=== PATIENT | female | born 1995 | race Two or more races ===

== ENCOUNTER 2016-10-05 14:27 | Emergency (ER) | payer MEDICAID ==
[~2016-10-05] VITALS: Ht 154.9 cm; Wt 72.6 kg
[~2016-10-05 14:27] MED LIST: PREN-96 PO
[2016-10-05 15:30] LABS: Urine Bilirubin Negative (Negative); Urine Color Yellow (Yellow); Urine Glucose Normal (Normal); Urine Ketone Negative (Negative); Urine Nitrite Negative (Negative); Urine RBC 10 /hpf (0 - 4); Urine Squamous Epithelial Cell FEW /hpf (<5); Urine Urobilinogen Normal (Negative)
[2016-10-05 15:34] LABS: Urine Blood 2+ /uL (Negative)
[2016-10-05 17:19] LABS: Basophils # (auto) 0.1 uL; Basophils % (auto) 0.5 % (0.0-2.0); Eosinophils # (auto) 0 uL; Eosinophils % (auto) 0.3 % (0.0-7.0); Hematocrit 40.6 % (36.0-46.0); Hemoglobin 13.6 g/dL (12.2-16.2); Lymphocytes # (auto) 2.6 uL; Lymphocytes % (auto) 20.9 % (10.0-50.0); Mean Corpuscular Hemoglobin 30.9 pg (28.0-32.0); Mean Corpuscular Hgb Conc. 33.4 g/dL (32.0-36.0); Mean Corpuscular Volume 92.4 fL (80.0-100.0); Mean Platelet Volume 8.2 fL (7.4-10.4); Monocytes # (auto) 0.5 uL; Monocytes % (auto) 3.9 % (0.0-12.0); Neutrophils # (auto) 9.1 uL; Neutrophils % (auto) 74.4 % (37.0-80.0); Platelet Count (auto) 311 10^3/uL (140-450); Red Cell Distribution Width 12.5 % (11.6-16.0); White Blood Cell 12.2 10^3/uL (4.4-10.8)
[2016-10-05 17:52] LABS: Albumin 4.3 g/dL (3.4-5.0); BUN/Creatinine Ratio 10.8; Bilirubin, Total 0.4 mg/dL (0.2-1.0); Calcium 9.4 mg/dL (8.5-10.1); Total Protein 8.4 g/dL (6.4-8.2)
[2016-10-06 02:30] VITALS: BP 127/76
== END 2016-10-06 02:03 | disposition home or self-care (01) ==
LOC: ER 14:27
DX: S16.1XXA Strain of muscle, fascia and tendon at neck level, initial encounter (principal); S00.81XA Abrasion of other part of head, initial encounter; F17.210 Nicotine dependence, cigarettes, uncomplicated; F12.10 Cannabis abuse, uncomplicated; Y08.89XA Assault by other specified means, initial encounter; Y93.89 Activity, other specified; Y99.8 Other external cause status; Y92.89 Other specified places as the place of occurrence of the external cause
CPT/HCPCS: 36415; 72040; 76856; 80053; 81001; 81025; 85025

== ENCOUNTER 2016-11-16 17:42 | Emergency (ER) | payer MEDICAID ==
[~2016-11-16] VITALS: Ht 157.5 cm; Wt 72.6 kg
[2016-11-16 18:49] LABS: Basophils # (auto) 0 uL; Basophils % (auto) 0.2 % (0.0-2.0); Eosinophils # (auto) 0.1 uL; Eosinophils % (auto) 1.3 % (0.0-7.0); Hemoglobin 13.6 g/dL (12.2-16.2); Lymphocytes # (auto) 3.2 uL; Lymphocytes % (auto) 29.9 % (10.0-50.0); Mean Corpuscular Hgb Conc. 33.2 g/dL (32.0-36.0); Mean Corpuscular Volume 93.2 fL (80.0-100.0); Mean Platelet Volume 8.1 fL (7.4-10.4); Monocytes # (auto) 0.6 uL; Monocytes % (auto) 5.2 % (0.0-12.0); Neutrophils # (auto) 6.9 uL; Neutrophils % (auto) 63.4 % (37.0-80.0); Platelet Count (auto) 317 10^3/uL (140-450); Red Cell Distribution Width 12.8 % (11.6-16.0); White Blood Cell 10.8 10^3/uL (4.4-10.8)
[2016-11-16 19:43] LABS: Urine Bilirubin Negative (Negative); Urine Blood Negative /uL (Negative); Urine Color Yellow (Yellow); Urine Glucose Normal (Normal); Urine Ketone Negative (Negative); Urine Nitrite Negative (Negative); Urine RBC <1 /hpf (0 - 4); Urine Squamous Epithelial Cell FEW /hpf (<5); Urine Urobilinogen Normal (Negative)
[2016-11-17] MEDS ORDERED: HYDROcodone-ACET 7.5/325MG TAB PO ONE (02:15)
[2016-11-17 02:42] LABS: Albumin 4.1 g/dL (3.4-5.0); BUN/Creatinine Ratio 15.7; Calcium 9.1 mg/dL (8.5-10.1); Potassium 4.4 mmol/L (3.5-5.1)
[2016-11-17 02:45] LABS: Bilirubin, Total 0.3 mg/dL (0.2-1.0); Total Protein 7.9 g/dL (6.4-8.2)
[2016-11-17 05:15] VITALS: BP 120/74
== END 2016-11-17 07:02 | disposition home or self-care (01) ==
LOC: ER 17:44
DX: N94.6 Dysmenorrhea, unspecified (principal); F17.210 Nicotine dependence, cigarettes, uncomplicated; F12.10 Cannabis abuse, uncomplicated
CPT/HCPCS: 36415; 76856; 80053; 81001; 84702; 85025

== ENCOUNTER 2017-12-12 19:56 | Emergency (ER) | payer MEDICAID ==
[~2017-12-12] VITALS: Ht 152.4 cm; Wt 77.1 kg
[2017-12-12 20:11] VITALS: BP 144/86
== END 2017-12-12 23:19 | disposition left against medical advice (07) ==
LOC: ER 19:56
DX: N93.9 Abnormal uterine and vaginal bleeding, unspecified (principal); R42 Dizziness and giddiness; Z53.21 Procedure and treatment not carried out due to patient leaving prior to being seen by health care provider

== ENCOUNTER 2018-07-31 21:57 | Emergency (ER) | payer MEDICAID ==
[~2018-07-31] VITALS: Ht 152.4 cm; Wt 81.6 kg
[2018-07-31 23:10] LABS: Urine Bacteria MOD /hpf (None Seen); Urine Blood Negative /uL (Negative); Urine Mucus FEW (None Seen); Urine Specific Gravity 1.012 (1.001-1.035); Urine WBC 6 /hpf (0 - 5)
[2018-08-01] MEDS ORDERED: ONDANSETRON HCL 4 MG/2 ML VIAL IV ONE (03:45)
[2018-08-01] MEDS ORDERED: SODIUM CHLORIDE 0.9% 1,000 ML IV ONE ×2 (03:45→04:00)
[2018-08-01] MEDS ORDERED: HYDROmorphone HCL 2 MG/ML VL IV ONE (03:45)
[2018-08-01 05:33] VITALS: BP 117/68
== END 2018-08-01 07:00 | disposition home or self-care (01) ==
LOC: ER 21:57
DX: O20.0 Threatened abortion (principal); O23.41 Unspecified infection of urinary tract in pregnancy, first trimester; Z3A.01 Less than 8 weeks gestation of pregnancy
CPT/HCPCS: 36415; 76801; 76817; 81001; 84702; 96374; 96375; 99284; J1170; J2405; J7030

== ENCOUNTER 2018-08-09 18:35 | Emergency (ER) | payer MEDICAID ==
[~2018-08-09] VITALS: Ht 152.4 cm; Wt 81.6 kg
[2018-08-09 18:47] VITALS: BP 139/63
[2018-08-09 19:31] LABS: Basophils # (auto) 0 uL; Basophils % (auto) 0.4 % (0.0-2.0); Eosinophils # (auto) 0.6 uL; Eosinophils % (auto) 4.7 % (0.0-7.0); Hematocrit 38.9 % (36.0-46.0); Lymphocytes # (auto) 2.8 uL; Lymphocytes % (auto) 23.4 % (10.0-50.0); Mean Corpuscular Hemoglobin 32.4 pg (28.0-32.0); Mean Corpuscular Hgb Conc. 33.5 g/dL (32.0-36.0); Mean Corpuscular Volume 96.6 fL (80.0-100.0); Monocytes # (auto) 0.7 uL; Monocytes % (auto) 5.5 % (0.0-12.0); Neutrophils # (auto) 7.8 uL; Nucleated Red Blood Cells % 0.1 %; Platelet Count (auto) 245 10^3/uL (140-450); Red Blood Cells 4.02 10^6/uL (4.0-5.20); Red Cell Distribution Width 12.7 % (11.8-14.3); White Blood Cell 11.8 10^3/uL (4.4-10.8)
[2018-08-09 19:48] LABS: Urine Bacteria FEW /hpf (None Seen); Urine Blood 1+ /uL (Negative); Urine Mucus FEW (None Seen); Urine Specific Gravity 1.014 (1.001-1.035); Urine WBC 3 /hpf (0 - 5)
== END 2018-08-10 02:00 | disposition left against medical advice (07) ==
LOC: ER 18:35
DX: O46.91 Antepartum hemorrhage, unspecified, first trimester (principal); Z3A.01 Less than 8 weeks gestation of pregnancy; Z53.21 Procedure and treatment not carried out due to patient leaving prior to being seen by health care provider
CPT/HCPCS: 36415; 76801; 76817; 81001; 84702; 85025

== ENCOUNTER 2019-02-27 20:40 | Observation (INO) | payer MEDICAID ==
[~2019-02-27] VITALS: Ht 152.4 cm; Wt 87.1 kg
[2019-02-27 22:13] LABS: Basophils # (auto) 0 uL; Basophils % (auto) 0.4 % (0.0-2.0); Eosinophils # (auto) 0.1 uL; Hematocrit 30.7 % (36.0-46.0); Hemoglobin 10.6 g/dL (12.2-16.2); Lymphocytes # (auto) 2.4 uL; Mean Corpuscular Hemoglobin 32.2 pg (28.0-32.0); Mean Corpuscular Hgb Conc. 34.6 g/dL (32.0-36.0); Monocytes # (auto) 0.4 uL; Monocytes % (auto) 5.3 % (0.0-12.0); Neutrophils # (auto) 5.2 uL; Neutrophils % (auto) 64.3 % (37.0-80.0); Platelet Count (auto) 165 10^3/uL (140-450); Red Cell Distribution Width 12.8 % (11.8-14.3); White Blood Cell 8.1 10^3/uL (4.4-10.8)
[2019-02-27] MEDS ORDERED: ACETAMINOPHEN 325 MG TAB PO ONE (22:15)
[2019-02-27 22:26] LABS: Albumin 2.4 g/dL (3.4-5.0); BUN/Creatinine Ratio 18.3; Potassium 3.6 mmol/L (3.5-5.1); Uric Acid 4.4 mg/dL (2.6-6.0)
[2019-02-27 22:27] LABS: INR < 0.93 (0.9-1.15)
[2019-02-27 22:28] LABS: Bilirubin, Total 0.2 mg/dL (0.2-1.0); Total Protein 5.9 g/dL (6.4-8.2)
[2019-02-27 22:34] LABS: Alcohol, Urine < 3.0 mg/dL (0-5); Amphetamine Screen, Urine NEGATIVE (NEGATIVE); Benzodiazephine Screen, Urine NEGATIVE (NEGATIVE); Cannabinoid Screen, Urine NEGATIVE (NEGATIVE); Cocaine Screen, Urine NEGATIVE (NEGATIVE); Opiate Scree,Urine NEGATIVE (NEGATIVE); Phencyclidine Screen, Urine NEGATIVE (NEGATIVE)
[2019-02-27 22:38] LABS: Urine Bacteria NONE SEEN /hpf (None Seen); Urine Blood Negative /uL (Negative); Urine Specific Gravity 1.032 (1.001-1.035); Urine WBC 11 /hpf (0 - 5)
[2019-02-27 22:50] LABS: Barbiturate Scree,Urine NEGATIVE (NEGATIVE)
[2019-02-27] MEDS ORDERED: BETAMETHASONE ACET (6MG/ML) 5ML VIAL IM SCH (23:15)
== END 2019-02-27 23:30 | disposition home or self-care (01) | DRG 566 ==
LOC: LDRP 20:40
PROVIDERS: ADMIT Obstetrics & Gynecology; ATTEND Obstetrics & Gynecology
DX: O26.893 Other specified pregnancy related conditions, third trimester (principal); R03.0 Elevated blood-pressure reading, without diagnosis of hypertension; R10.2 Pelvic and perineal pain; R51 Headache; Z3A.34 34 weeks gestation of pregnancy
CPT/HCPCS: 36415; 59025; 80053; 80307; 81001; 81002; 84550; 85025; 85610; 85730; 96372; G0378; J0702

== ENCOUNTER 2019-02-28 20:01 | Observation (INO) | payer MEDICAID ==
[2019-02-28] MEDS ORDERED: BETAMETHASONE ACET (6MG/ML) 5ML VIAL IM ONE ×2 (20:15→20:45)
== END 2019-02-28 21:11 | disposition home or self-care (01) | DRG 566 ==
LOC: LDRP 20:01
PROVIDERS: ADMIT Specialist; ATTEND Specialist
DX: O26.893 Other specified pregnancy related conditions, third trimester (principal); R03.0 Elevated blood-pressure reading, without diagnosis of hypertension; R10.2 Pelvic and perineal pain; R51 Headache; Z3A.34 34 weeks gestation of pregnancy
CPT/HCPCS: 59025; 81002; 96372; G0378

== ENCOUNTER 2019-03-01 08:00 | Observation (INO) | payer MEDICAID ==
[2019-03-01] MEDS: LACTATED RINGER'S 1,000 ML IV ONE ×2 (09:30→10:15)
[2019-03-01 09:45] LABS: Urine Bacteria NONE SEEN /hpf (None Seen); Urine Blood Negative /uL (Negative); Urine Mucus FEW (None Seen); Urine Specific Gravity 1.027 (1.001-1.035); Urine WBC 2 /hpf (0 - 5)
[2019-03-01] MEDS ORDERED: TERBUTALINE SULFATE 1 MG/ML 1ML VIAL SC SCH (09:45)
[2019-03-01 09:48] LABS: Basophils # (auto) 0 uL; Basophils % (auto) 0.2 % (0.0-2.0); Eosinophils # (auto) 0 uL; Hematocrit 31.2 % (36.0-46.0); Hemoglobin 10.7 g/dL (12.2-16.2); Lymphocytes # (auto) 1.5 uL; Lymphocytes % (auto) 14.3 % (10.0-50.0); Mean Corpuscular Hgb Conc. 34.3 g/dL (32.0-36.0); Mean Corpuscular Volume 93.2 fL (80.0-100.0); Monocytes # (auto) 0.3 uL; Monocytes % (auto) 2.9 % (0.0-12.0); Neutrophils # (auto) 8.9 uL; Neutrophils % (auto) 82.6 % (37.0-80.0); Nucleated Red Blood Cells % 0.1 %; Platelet Count (auto) 171 10^3/uL (140-450); Red Blood Cells 3.35 10^6/uL (4.0-5.20); Red Cell Distribution Width 12.8 % (11.8-14.3); White Blood Cell 10.8 10^3/uL (4.4-10.8)
[2019-03-01 09:55] LABS: INR < 0.93 (0.9-1.15); Partial Thromboplastin Time 25.7 sec (23.64-32.05)
[2019-03-01 09:58] LABS: Potassium 4.1 mmol/L (3.5-5.1)
[2019-03-01 09:58] LABS: Protein, Urine 265.2 mg/dL (0.0-11.9)
[2019-03-01 10:04] LABS: Albumin 2.5 g/dL (3.4-5.0); Bilirubin, Total 0.2 mg/dL (0.2-1.0); Calcium 8.5 mg/dL (8.5-10.1); Total Protein 6.3 g/dL (6.4-8.2); Uric Acid 3.9 mg/dL (2.6-6.0)
== END 2019-03-01 12:00 | disposition home or self-care (01) | DRG 566 ==
LOC: LDRP 08:00
PROVIDERS: ADMIT Specialist; ATTEND Specialist
DX: O26.893 Other specified pregnancy related conditions, third trimester (principal); F41.9 Anxiety disorder, unspecified; R51 Headache; R07.89 Other chest pain; O99.343 Other mental disorders complicating pregnancy, third trimester; Z3A.34 34 weeks gestation of pregnancy
CPT/HCPCS: 36415; 59025; 80053; 81001; 81002; 84156; 84550; 85025; 85610; 85730; 96372; G0378; J3105

== ENCOUNTER 2019-03-04 09:40 | Observation (INO) | payer MEDICAID ==
[~2019-03-04] VITALS: Ht 152.4 cm; Wt 91.2 kg
[2019-03-04] MEDS ORDERED: TERBUTALINE SULFATE 1 MG/ML 1ML VIAL SC SCH (10:45)
[2019-03-04 11:00] LABS: Basophils # (auto) 0 uL; Basophils % (auto) 0.3 % (0.0-2.0); Eosinophils # (auto) 0 uL; Eosinophils % (auto) 0.4 % (0.0-7.0); Hematocrit 29.6 % (36.0-46.0); Hemoglobin 10.2 g/dL (12.2-16.2); Lymphocytes # (auto) 2.6 uL; Lymphocytes % (auto) 29.1 % (10.0-50.0); Mean Corpuscular Hgb Conc. 34.3 g/dL (32.0-36.0); Mean Corpuscular Volume 93.3 fL (80.0-100.0); Monocytes # (auto) 0.5 uL; Monocytes % (auto) 5.5 % (0.0-12.0); Neutrophils # (auto) 5.9 uL; Neutrophils % (auto) 64.7 % (37.0-80.0); Nucleated Red Blood Cells % 0.1 %; Platelet Count (auto) 171 10^3/uL (140-450); Red Blood Cells 3.18 10^6/uL (4.0-5.20); Red Cell Distribution Width 12.6 % (11.8-14.3); White Blood Cell 9.1 10^3/uL (4.4-10.8)
[2019-03-04 11:06] LABS: Urine Bacteria FEW /hpf (None Seen); Urine Blood 1+ /uL (Negative); Urine Mucus FEW (None Seen); Urine Specific Gravity 1.033 (1.001-1.035); Urine WBC 5 /hpf (0 - 5)
[2019-03-04 11:15] LABS: INR < 0.93 (0.9-1.15); Partial Thromboplastin Time 26.5 sec (23.64-32.05)
[2019-03-04 11:19] LABS: Albumin 2.1 g/dL (3.4-5.0); Calcium 7.5 mg/dL (8.5-10.1)
[2019-03-04 11:24] LABS: BUN/Creatinine Ratio 25.5; Bilirubin, Total 0.3 mg/dL (0.2-1.0); Total Protein 5.3 g/dL (6.4-8.2); Uric Acid 4.9 mg/dL (2.6-6.0)
[2019-03-04] MEDS ORDERED: DEXTROSE 10% 1,000 ML IV ONE ×2 (11:45→12:00)
[2019-03-04] MEDS ORDERED: LACTATED RINGER'S 1,000 ML IV ONE (11:45)
[2019-03-04] MEDS ORDERED: CEFTRIAXONE SODIUM 2 GM in D5W 5% 50 ML IV ONE (11:45)
[2019-03-04] MEDS ORDERED: SODIUM CHLORIDE 0.9% 1,000 ML IV SCH ×2 (11:45→14:50)
[2019-03-04] MEDS: LABETALOL HCL 200 MG TAB PO SCH (11:56)
[2019-03-04] MEDS ORDERED: DEXTROSE 10% 250 ML IV ONE (12:24)
[2019-03-04] MEDS: ACETAMINOPHEN 325 MG TAB PO PRN ×2 (13:44→23:24)
[2019-03-04] MEDS ORDERED: MAGNESIUM SULFATE 100 ML IV STA (19:16)
[2019-03-04] MEDS ORDERED: LACTATED RINGER'S 1,000 ML IV SCH (19:16)
[2019-03-04] MEDS: MAGNESIUM SULFATE 40MG/ML 1,000 ML IV SCH (20:54)
[2019-03-04] MEDS ORDERED: hydrALAZINE HCL 20 MG/ML VL IV ONE (21:00)
[2019-03-04] MEDS ORDERED: cefTRIAXone 1GM/50ML D5W 50 ML IV SCH (21:00)
[2019-03-04] MEDS ORDERED: hydrALAZINE HCL 20 MG/ML VL ONE (21:05)
[2019-03-05] VITALS (16 sets, daily range): BP systolic 123–137; BP diastolic 71–101
[2019-03-05] MEDS: LABETALOL HCL 200 MG TAB PO SCH (00:41)
[2019-03-05] MEDS: ACETAMINOPHEN 325 MG TAB PO PRN (04:27)
[2019-03-05] MEDS ORDERED: hydrALAZINE HCL 20 MG/ML VL IV PRN (06:45)
[2019-03-05] MEDS ORDERED: TETRACAINE 1% INJ 2 ML VIAL IJ ONE (07:12)
[2019-03-05] MEDS ORDERED: EPINEPHrine HCL 1 MG/1 ML AMP ONE (07:24)
[2019-03-05] MEDS ORDERED: ePHEDrine SULFATE 50 MG/ML AMP ONE (07:24)
[2019-03-05] MEDS ORDERED: MIDAZOLAM HCL 1MG/1ML-2 ML VIAL ONE (07:24)
[2019-03-05] MEDS ORDERED: MORPHINE SULF(PF) 0.5MG/ML 10ML VIAL ONE (07:24)
[2019-03-05] MEDS ORDERED: ceFAZolin 1GM VL ONE ×3 (07:24→07:35)
[2019-03-05] MEDS ORDERED: OXYTOCIN 10 UNIT/ML 10ML VIAL ONE (07:24)
[2019-03-05] MEDS ORDERED: SODIUM CHLORIDE LOCK 20 ML ONE (07:24)
[2019-03-05] MEDS ORDERED: ONDANSETRON HCL 4 MG/2 ML VIAL ONE (07:24)
[2019-03-05] MEDS ORDERED: fentaNYL CITRATE 100 MCG/2 ML VL ONE (07:24)
[2019-03-05] MEDS ORDERED: LACTATED RINGER'S 1,000 ML IV SCH (08:55)
[2019-03-05] MEDS ORDERED: ACETAMINOPHEN IV 1000 MG/100ML (10MG/ML) IV ONE (09:00)
[2019-03-05] MEDS ORDERED: OXYTOCIN 10UNIT/ML 1ML VIAL ONE (09:00)
[2019-03-05] MEDS ORDERED: diphenhdrAMINE HCL 50 MG/1 ML VL IV PRN (09:00)
[2019-03-05] MEDS ORDERED: NALOXONE HCL 0.4 MG/ML VIAL IV PRN (09:00)
[2019-03-05] MEDS ORDERED: HYDROmorphone HCL 2 MG/ML VL IV PRN ×2 (09:00)
[2019-03-05] MEDS ORDERED: ONDANSETRON HCL 4 MG/2 ML VIAL IV PRN (09:00)
[2019-03-05] MEDS ORDERED: METOCLOPRAMIDE HCL 5MG/ml INJ 2ml VIAL IV ONE (09:00)
--- NOTE | 2019-03-05 09:56 | NUR ---
REPORT GIVEN TO DARIAN ON STABLE PT, TRANSFERRED CARE
--- NOTE | 2019-03-05 10:30 | NUR ---
DTR +2, RESP RATE.16
[2019-03-05] MEDS: MAGNESIUM SULFATE 40MG/ML 1,000 ML IV SCH (10:53)
--- NOTE | 2019-03-05 11:30 | NUR ---
DTR +2, RESP RATE.16 Signed: 03/05/19 at 1144 by Seferino Bar RN
--- NOTE | 2019-03-05 12:20 | NUR ---
DTR +2, RESP RATE.16
--- NOTE | 2019-03-05 13:30 | NUR ---
DTR +1, RESP RATE.16
[2019-03-05] MEDS ORDERED: PREN-96 PO (13:41)
--- NOTE | 2019-03-05 15:30 | NUR ---
DTR +1, RESP RATE.16
[2019-03-05] MEDS ORDERED: ceFAZolin 1GM/50ML 50 ML IV ONE ×2 (17:00→17:06)
[2019-03-05 18:07] LABS: Albumin 1.9 g/dL (3.4-5.0); Calcium 6.8 mg/dL (8.5-10.1)
[2019-03-05 18:10] LABS: BUN/Creatinine Ratio 13.2; Bilirubin, Total 0.3 mg/dL (0.2-1.0); Total Protein 5.1 g/dL (6.4-8.2)
--- NOTE | 2019-03-05 18:30 | NUR ---
Teaching: Reviewed information in [facility] booklet with patient. Discussed benefits of and risks associated with not . Discussed different positions, proper latch, feeding cues, and baby-led . Provided information of medication side effects related to . All questions and concerns addressed at this time. Patient verbalized understanding of information.
--- NOTE | 2019-03-05 19:00 | NUR ---
Magnesium Infusion Spoke with Dr. Perez regarding this patient. SBAR and update, including but not limited to 1710 Magnesium level 5.8, infusion still running at 2gm/50ml/hr. Orders received to stop Magnesium infusion for three hours, redraw magnesium level and restart at 2200, infuse for two hours and discontinue infusion at 0000 on 03/06/19. Patient updated on POC, magnesium infusion stopped at this time. Continue current plan of care.
[2019-03-05] MEDS: LACTATED RINGER'S 1,000 ML IV SCH (21:02)
[2019-03-06] VITALS (9 sets, daily range): BP systolic 124–145; BP diastolic 73–95
[2019-03-06] MEDS ORDERED: KETOROLAC TROMETH 15 mg/ml 1ML VL IV PRN (00:53)
[2019-03-06] MEDS ORDERED: ceFAZolin 1GM/50ML 50 ML IV ONE ×3 (01:00→09:13)
[2019-03-06] MEDS ORDERED: DERMOPLAST 60ML BOTTLE TOP PRN (04:15)
[2019-03-06] MEDS ORDERED: WITCH HAZEL-GLYCERIN PAD TOP PRN (04:15)
[2019-03-06] MEDS ORDERED: PHISODERM TOP SOLN 240ML BTL TOP PRN (04:15)
[2019-03-06 05:06] LABS: RPR Non Reactive (Non Reactive)
--- NOTE | 2019-03-06 05:20 | NUR ---
Ambulation: Patient OOB with standby assistance by RN. Patient ambulated to chair with steady gait. Calles catheter remains at this time. [facility] teaching provided with returned demonstration by patient. Clean gown provided and bed linen changed. Patient ambulated back to bed with steady gait and no distress noted.
[2019-03-06] MEDS ORDERED: IBUPROFEN 800 MG TAB PO PRN ×2 (06:15→09:00)
[2019-03-06 07:38] LABS: Basophils # (auto) 0 uL; Basophils % (auto) 0.4 % (0.0-2.0); Eosinophils # (auto) 0.1 uL; Hematocrit 28.1 % (36.0-46.0); Hemoglobin 9.8 g/dL (12.2-16.2); Lymphocytes % (auto) 19.7 % (10.0-50.0); Mean Corpuscular Hemoglobin 32.7 pg (28.0-32.0); Mean Corpuscular Volume 93.5 fL (80.0-100.0); Monocytes # (auto) 0.4 uL; Monocytes % (auto) 3.6 % (0.0-12.0); Neutrophils # (auto) 7.5 uL; Neutrophils % (auto) 75.3 % (37.0-80.0); Nucleated Red Blood Cells % 0.1 %; Platelet Count (auto) 184 10^3/uL (140-450); Red Blood Cells 3.01 10^6/uL (4.0-5.20)
--- NOTE | 2019-03-06 08:00 | NUR ---
Weaver catheter dc'd Order to discontinue weaver catheter. Weaver dc'd with clean technique following deflation of balloon. Patient tolerated well with no complaints of pain. Continue care. Dr. Perez At bedside at 0730 am and states only give medication labetalol 100 mg/bid if systolic pressure id equal or grater then 160 and diastolic of 95 equal to or greater then.
[2019-03-06] MEDS ORDERED: BISACODYL 10 MG RECT SUPP PR PRN (09:00)
[2019-03-06] MEDS ORDERED: HYDROcodone-ACET 5/325MG TAB PO PRN ×2 (09:00)
[2019-03-06] MEDS: HYDROcodone-ACET 5/325MG TAB PO PRN ×3 (09:10→22:30)
[2019-03-06] MEDS: DOCUSATE CALCIUM 240 MG CAP PO SCH (10:53)
[2019-03-06] MEDS: DOCUSATE SOD 100 MG CAP PO SCH ×2 (10:53→22:29)
--- NOTE | 2019-03-06 12:39 | NUR ---
REPORT GIVEN TO Joseph ROBIN RN
[2019-03-06] MEDS: LACTATED RINGER'S 1,000 ML IV SCH (13:56)
[2019-03-06] MEDS: SIMETHICONE 80 MG CHEWABLE TABLET PO SCH ×2 (17:53→22:29)
[2019-03-07 02:51] VITALS: BP 127/71
[2019-03-07] MEDS: HYDROcodone-ACET 5/325MG TAB PO PRN ×3 (02:59→20:56)
[2019-03-07] MEDS: SIMETHICONE 80 MG CHEWABLE TABLET PO SCH ×4 (06:03→22:25)
[2019-03-07 07:30] VITALS: BP 128/86
[2019-03-07] MEDS: DOCUSATE SOD 100 MG CAP PO SCH ×2 (10:35→22:25)
[2019-03-07] MEDS: DOCUSATE CALCIUM 240 MG CAP PO SCH (10:35)
[2019-03-07 11:12] VITALS: BP 137/83
[2019-03-07 14:44] VITALS: BP 141/88
[2019-03-07 19:30] VITALS: BP 134/89
--- NOTE | 2019-03-07 20:00 | NUR ---
IV removal IV DC'd with clean sterile technique in Right FA and Left AC, catheters fully intact. Pressure dressings applied to sites. Patient tolerated well. NOTE:
[2019-03-07 23:00] VITALS: BP 130/84
--- NOTE | 2019-03-08 02:59 | NUR ---
Discharge: Discharge instructions given as ordered. Pt encouraged to follow up with [facility] T[employer]ER as instructed. All questions and concerns addressed. Patient verbalized understanding. Medication reconciliation completed and copy given to patient.
[2019-03-08 03:06] VITALS: BP 120/73
[2019-03-08] MEDS: SIMETHICONE 80 MG CHEWABLE TABLET PO SCH (05:21)
[2019-03-08] MEDS: HYDROcodone-ACET 5/325MG TAB PO PRN (05:44)
[2019-03-08 07:10] VITALS: BP 135/97
--- NOTE | 2019-03-08 08:16 | NUR ---
Discharge: Patient taken to vehicle via ambulation refusing wheelchair with all personal belongings, accompanied by staff and family member. No distress noted at time of departure, no adverse changes in status since initial assessment.
== END 2019-03-08 08:16 | disposition home or self-care (01) | DRG 560 ==
LOC: LDRP 09:40
PROVIDERS: ADMIT Specialist; ATTEND Specialist
DX: O82 Encounter for cesarean delivery without indication (principal); Z37.0 Single live birth; O14.13 Severe pre-eclampsia, third trimester; O23.43 Unspecified infection of urinary tract in pregnancy, third trimester; O26.893 Other specified pregnancy related conditions, third trimester; R51 Headache; R80.9 Proteinuria, unspecified; Z3A.35 35 weeks gestation of pregnancy
CPT/HCPCS: 36415; 59025; 59514; 76805; 80053; 81001; 81002; 82948; 82962; 83735; 84112; 84550; 85025; 85384; 85610; 85730; 86592; 86703; 86762; 86850; 86900; 86901; 86920; 87040; 87086; 87340; 94760; 96365; 96366; 96367; 96372; 96375; G0378; J0171; J0360; J0690; J0696; J1885; J2250; J2270; J2405; J2590; J3010; J3105; J3475; J7030; J7060; J7120; 96361

== ENCOUNTER 2019-10-27 20:50 | Emergency (ER) | payer SELFPAY ==
[~2019-10-27] VITALS: Ht 152.4 cm; Wt 72.6 kg
[2019-10-27 21:36] LABS: Basophils # (auto) 0 10 ^3/uL (0-0.2); Basophils % (auto) 0.4 % (0.0-2.0); Eosinophils # (auto) 0.2 10 ^3/uL (0-0.8); Eosinophils % (auto) 2.2 % (0.0-7.0); Hematocrit 35.9 % (36.0-46.0); Hemoglobin 12.4 g/dL (12.2-16.2); Lymphocytes # (auto) 2.7 10 ^3/uL (0.4-5.4); Lymphocytes % (auto) 28.8 % (10.0-50.0); Mean Corpuscular Hemoglobin 32.4 pg (28.0-32.0); Mean Corpuscular Hgb Conc. 34.6 g/dL (32.0-36.0); Mean Corpuscular Volume 93.7 fL (80.0-100.0); Monocytes # (auto) 0.4 10 ^3/uL (0-1.3); Monocytes % (auto) 4.4 % (0.0-12.0); Neutrophils # (auto) 6.1 10 ^3/uL (1.6-8.6); Neutrophils % (auto) 64.2 % (37.0-80.0); Nucleated Red Blood Cells % 0.1 %; Platelet Count (auto) 240 10^3/uL (140-450); Red Blood Cells 3.83 10^6/uL (4.0-5.20); Red Cell Distribution Width 13.6 % (11.8-14.3); White Blood Cell 9.4 10^3/uL (4.4-10.8)
[2019-10-27 21:40] LABS: Urine Bacteria NONE SEEN /hpf (None Seen); Urine Blood Negative /uL (Negative); Urine Specific Gravity 1.005 (1.001-1.035); Urine WBC 2 /hpf (0 - 5)
[2019-10-27 21:57] LABS: Calcium 8.9 mg/dL (8.5-10.1); Potassium 3.6 mmol/L (3.5-5.1)
[2019-10-27 22:00] LABS: BUN/Creatinine Ratio 8.3; Bilirubin, Total 0.6 mg/dL (0.2-1.0); Total Protein 7.6 g/dL (6.4-8.2)
[2019-10-28 00:37] VITALS: BP 127/81
== END 2019-10-28 00:39 | disposition home or self-care (01) ==
LOC: ER 20:56
DX: O20.0 Threatened abortion (principal); Z3A.01 Less than 8 weeks gestation of pregnancy; Z87.891 Personal history of nicotine dependence
CPT/HCPCS: 36415; 76801; 76817; 80053; 81001; 81025; 84702; 85025

== ENCOUNTER 2020-04-10 19:56 | Observation (INO) | payer MEDICAID ==
[~2020-04-10] VITALS: Ht 152.4 cm; Wt 82.1 kg
[2020-04-10] MEDS ORDERED: TERBUTALINE SULFATE 1 MG/ML 1ML VIAL SC ONE (20:35)
[2020-04-10] MEDS ORDERED: TERBUTALINE SULFATE 1 MG/ML 1ML VIAL SC SCH (20:45)
[2020-04-10] MEDS ORDERED: ceFAZolin 1GM/50ML 50 ML IV ONE ×2 (21:45)
[2020-04-10] MEDS ORDERED: PROMETHAZINE HCL 25 MG/ML 1ML IV PRN (21:45)
[2020-04-10] MEDS ORDERED: BUTORPHANOL TARTRATE 2 MG/1 ML VIAL IV PRN (21:45)
[2020-04-10] MEDS ORDERED: LACTATED RINGER'S 1,000 ML IV ONE (21:45)
[2020-04-10] MEDS ORDERED: HYDR250I6 IM (23:27)
== END 2020-04-11 00:45 | disposition home or self-care (01) ==
LOC: LDRP 19:56
PROVIDERS: ADMIT Specialist; ATTEND Specialist
DX: O26.893 Other specified pregnancy related conditions, third trimester (principal); O99.89 Other specified diseases and conditions complicating pregnancy, childbirth and the puerperium; R10.2 Pelvic and perineal pain; M54.5 Low back pain; Z3A.29 29 weeks gestation of pregnancy
CPT/HCPCS: 59025; 76815; 81002; 96365; 96366; 96372; 96375; G0378; J0595; J0690; J2550; J3105; 96361; 96374

== ENCOUNTER 2020-04-17 18:13 | Observation (INO) | payer MEDICAID ==
[~2020-04-17 18:13] MED LIST changes: +HYDR250I6 IM
[2020-04-17] MEDS ORDERED: NITR-87 PO (18:27)
== END 2020-04-17 18:55 | disposition home or self-care (01) ==
LOC: LDRP 18:13
PROVIDERS: ADMIT Specialist; ATTEND Specialist
DX: O60.03 Preterm labor without delivery, third trimester (principal); Z3A.30 30 weeks gestation of pregnancy
CPT/HCPCS: 59025; 81002; G0378

== ENCOUNTER 2020-04-24 18:25 | Observation (INO) | payer MEDICAID ==
[~2020-04-24 18:25] MED LIST changes: +NITR-87 PO
== END 2020-04-24 20:10 | disposition home or self-care (01) ==
LOC: LDRP 18:25
PROVIDERS: ADMIT Obstetrics & Gynecology; ATTEND Obstetrics & Gynecology
DX: O60.03 Preterm labor without delivery, third trimester (principal); Z3A.31 31 weeks gestation of pregnancy
CPT/HCPCS: 59025; 81002; G0378

== ENCOUNTER 2020-04-26 08:50 | Observation (INO) | payer MEDICAID ==
[~2020-04-26 08:50] MED LIST changes: -NITR-87 PO
== END 2020-04-26 10:00 | disposition home or self-care (01) ==
LOC: LDRP 08:50
PROVIDERS: ADMIT Obstetrics & Gynecology; ATTEND Obstetrics & Gynecology
DX: O60.03 Preterm labor without delivery, third trimester (principal); Z3A.32 32 weeks gestation of pregnancy
CPT/HCPCS: 59025; 81002; G0378

== ENCOUNTER 2020-05-01 18:55 | Observation (INO) | payer MEDICAID ==
[~2020-05-01] VITALS: Ht 152.4 cm; Wt 83.9 kg
== END 2020-05-01 19:56 | disposition home or self-care (01) ==
LOC: LDRP 18:55
PROVIDERS: ADMIT Obstetrics & Gynecology; ATTEND Obstetrics & Gynecology
DX: O60.03 Preterm labor without delivery, third trimester (principal); Z3A.32 32 weeks gestation of pregnancy
CPT/HCPCS: 59025; 81002; G0378

== ENCOUNTER 2020-05-08 19:09 | Observation (INO) | payer MEDICAID | END 2020-05-08 20:05 | disposition home or self-care (01) | LOC: LDRP 19:09 | PROVIDERS: ADMIT Specialist; ATTEND Specialist | DX: Z34.93 Encounter for supervision of normal pregnancy, unspecified, third trimester (principal); Z3A.33 33 weeks gestation of pregnancy | CPT/HCPCS: 59025; 81002; G0378 ==

== ENCOUNTER 2020-05-15 18:34 | Observation (INO) | payer MEDICAID ==
[~2020-05-15] VITALS: Ht 152.4 cm; Wt 85.7 kg
== END 2020-05-15 20:18 | disposition home or self-care (01) ==
LOC: LDRP 18:34
PROVIDERS: ADMIT Obstetrics & Gynecology; ATTEND Obstetrics & Gynecology
DX: O60.03 Preterm labor without delivery, third trimester (principal); Z3A.34 34 weeks gestation of pregnancy
CPT/HCPCS: 59025; 81002; G0378

== ENCOUNTER 2020-05-22 18:34 | Observation (INO) | payer MEDICAID ==
[~2020-05-22] VITALS: Ht 152.4 cm; Wt 85.7 kg
== END 2020-05-22 19:52 | disposition home or self-care (01) ==
LOC: LDRP 18:34
PROVIDERS: ADMIT Obstetrics & Gynecology; ATTEND Obstetrics & Gynecology
DX: O60.03 Preterm labor without delivery, third trimester (principal); O34.219 Maternal care for unspecified type scar from previous cesarean delivery; O34.63 Maternal care for abnormality of vagina, third trimester; N89.8 Other specified noninflammatory disorders of vagina; Z3A.35 35 weeks gestation of pregnancy
CPT/HCPCS: 59025; 81002; G0378

== ENCOUNTER 2020-05-29 18:32 | Observation (INO) | payer MEDICAID ==
[~2020-05-29] VITALS: Ht 152.4 cm; Wt 84.8 kg
== END 2020-05-29 19:44 | disposition home or self-care (01) ==
LOC: LDRP 18:32
PROVIDERS: ADMIT Specialist; ATTEND Specialist
DX: O60.03 Preterm labor without delivery, third trimester (principal); O99.891 Other specified diseases and conditions complicating pregnancy; M54.9 Dorsalgia, unspecified; Z3A.36 36 weeks gestation of pregnancy
CPT/HCPCS: 59025; 81002; G0378

== ENCOUNTER 2020-06-04 15:56 | Observation (INO) | payer MEDICAID ==
[~2020-06-04 15:56] MED LIST changes: -HYDR250I6 IM
[2020-06-04 18:40] LABS: Basophils # (auto) 0 10 ^3/uL (0-0.2); Basophils % (auto) 0.3 % (0.0-2.0); Eosinophils # (auto) 0.1 10 ^3/uL (0-0.8); Eosinophils % (auto) 1.1 % (0.0-7.0); Hematocrit 36.1 % (36.0-46.0); Lymphocytes # (auto) 2.5 10 ^3/uL (0.4-5.4); Lymphocytes % (auto) 29.4 % (10.0-50.0); Mean Corpuscular Hemoglobin 32.3 pg (28.0-32.0); Mean Corpuscular Hgb Conc. 33.4 g/dL (32.0-36.0); Mean Corpuscular Volume 96.8 fL (80.0-100.0); Monocytes # (auto) 0.3 10 ^3/uL (0-1.3); Monocytes % (auto) 3.6 % (0.0-12.0); Neutrophils # (auto) 5.7 10 ^3/uL (1.6-8.6); Neutrophils % (auto) 65.6 % (37.0-80.0); Nucleated Red Blood Cells % 0.1 %; Platelet Count (auto) 184 10^3/uL (140-450); Red Blood Cells 3.72 10^6/uL (4.0-5.20); Red Cell Distribution Width 13.8 % (11.8-14.3); White Blood Cell 8.7 10^3/uL (4.4-10.8)
[2020-06-04 18:53] LABS: INR 0.92 (0.9-1.15); Partial Thromboplastin Time 26.1 sec (23.0-31.2)
[2020-06-04 18:56] LABS: Urine WBC None Seen /hpf (0 - 5)
[2020-06-04 19:01] LABS: Albumin 2.9 g/dL (3.4-5.0); Calcium 8.8 mg/dL (8.5-10.1); Potassium 4.1 mmol/L (3.5-5.1)
[2020-06-04 19:04] LABS: Bilirubin, Total 0.3 mg/dL (0.2-1.0); Total Protein 6.8 g/dL (6.4-8.2); Uric Acid 4.1 mg/dL (2.6-6.0)
[2020-06-04 19:07] LABS: Urine Bacteria FEW /hpf (None Seen); Urine Blood Negative /uL (Negative); Urine Specific Gravity 1.004 (1.001-1.035)
[2020-06-04 19:33] LABS: Alcohol, Urine < 3.0 mg/dL (0-10); Amphetamine Screen, Urine NEGATIVE (NEGATIVE); Barbiturate Scree,Urine NEGATIVE (NEGATIVE); Benzodiazephine Screen, Urine NEGATIVE (NEGATIVE); Cannabinoid Screen, Urine NEGATIVE (NEGATIVE); Cocaine Screen, Urine NEGATIVE (NEGATIVE); Opiate Scree,Urine NEGATIVE (NEGATIVE); Phencyclidine Screen, Urine NEGATIVE (NEGATIVE)
== END 2020-06-04 19:47 | disposition home or self-care (01) ==
LOC: LDRP 15:56
PROVIDERS: ADMIT Specialist; ATTEND Specialist
DX: O26.893 Other specified pregnancy related conditions, third trimester (principal); G89.18 Other acute postprocedural pain; O34.219 Maternal care for unspecified type scar from previous cesarean delivery; Z79.899 Other long term (current) drug therapy; Z3A.37 37 weeks gestation of pregnancy
CPT/HCPCS: 36415; 59025; 76805; 80053; 80307; 81001; 81002; 82570; 84112; 84550; 85025; 85610; 85730; G0378; Q0114

== ENCOUNTER 2020-06-11 15:35 | Observation (INO) | payer MEDICAID ==
[2020-06-11 17:49] LABS: Basophils # (auto) 0 10 ^3/uL (0-0.2); Basophils % (auto) 0.3 % (0.0-2.0); Eosinophils # (auto) 0.1 10 ^3/uL (0-0.8); Eosinophils % (auto) 1.1 % (0.0-7.0); Hematocrit 35.5 % (36.0-46.0); Hemoglobin 12.4 g/dL (12.2-16.2); Lymphocytes # (auto) 2.3 10 ^3/uL (0.4-5.4); Lymphocytes % (auto) 29.2 % (10.0-50.0); Mean Corpuscular Hemoglobin 33.6 pg (28.0-32.0); Mean Corpuscular Hgb Conc. 34.8 g/dL (32.0-36.0); Mean Corpuscular Volume 96.7 fL (80.0-100.0); Monocytes # (auto) 0.3 10 ^3/uL (0-1.3); Monocytes % (auto) 3.7 % (0.0-12.0); Neutrophils # (auto) 5.2 10 ^3/uL (1.6-8.6); Neutrophils % (auto) 65.7 % (37.0-80.0); Platelet Count (auto) 177 10^3/uL (140-450); Red Blood Cells 3.68 10^6/uL (4.0-5.20); Red Cell Distribution Width 13.9 % (11.8-14.3); White Blood Cell 7.8 10^3/uL (4.4-10.8)
[2020-06-11 17:50] LABS: Urine Bacteria MANY /hpf (None Seen); Urine Blood Negative /uL (Negative); Urine Hyaline Cast FEW /lpf (0 - 2); Urine Specific Gravity 1.008 (1.001-1.035); Urine WBC 22 /hpf (0 - 5)
[2020-06-11 17:58] LABS: INR 0.9 (0.9-1.15)
[2020-06-11 18:00] LABS: Albumin 2.8 g/dL (3.4-5.0); Calcium 8.8 mg/dL (8.5-10.1); Potassium 4.3 mmol/L (3.5-5.1)
[2020-06-11 18:00] LABS: Protein, Urine 16.9 mg/dL (0.0-11.9)
[2020-06-11 18:05] LABS: BUN/Creatinine Ratio 14.7; Bilirubin, Total 0.3 mg/dL (0.2-1.0); Total Protein 6.5 g/dL (6.4-8.2); Uric Acid 5.4 mg/dL (2.6-6.0)
== END 2020-06-11 18:50 | disposition home or self-care (01) ==
LOC: LDRP 15:35
PROVIDERS: ADMIT Obstetrics & Gynecology; ATTEND Obstetrics & Gynecology
DX: O24.410 Gestational diabetes mellitus in pregnancy, diet controlled (principal); O60.03 Preterm labor without delivery, third trimester; Z3A.38 38 weeks gestation of pregnancy; Z79.899 Other long term (current) drug therapy
CPT/HCPCS: 36415; 59025; 80053; 81001; 81002; 82570; 82948; 82962; 84156; 84550; 85025; 85610; 85730; G0378

== ENCOUNTER 2020-06-13 09:39 | Outpatient (CLI) | payer MEDICAID | END 2020-06-13 21:43 | disposition home or self-care (01) | LOC: LDRP 09:39 → OB 09:39 → UNDOADMOB 09:39 → UNDODISOB 10:20 → EDSTATUS 13:02 → OB 21:43 | PROVIDERS: ATTEND Specialist | DX: Z01.812 Encounter for preprocedural laboratory examination (principal); Z20.828 Contact with and (suspected) exposure to other viral communicable diseases | CPT/HCPCS: G0378 ==

== ENCOUNTER 2020-06-15 08:15 | Inpatient (IN) | payer MEDICAID ==
[2020-06-15] VITALS (15 sets, daily range): BP systolic 106–152; BP diastolic 53–80
[~2020-06-15] VITALS: Ht 152.4 cm; Wt 88.9 kg
[2020-06-15] MEDS ORDERED: LACTATED RINGER'S 1,000 ML IV ONE (08:45)
[2020-06-15] MEDS ORDERED: LACTATED RINGER'S 1,000 ML IV SCH (08:45)
[2020-06-15] MEDS ORDERED: ceFAZolin 1GM/50ML 50 ML IV ONE (08:45)
[2020-06-15 09:44] LABS: Basophils # (auto) 0 10 ^3/uL (0-0.2); Basophils % (auto) 0.5 % (0.0-2.0); Eosinophils # (auto) 0.1 10 ^3/uL (0-0.8); Eosinophils % (auto) 1.2 % (0.0-7.0); Hematocrit 36.8 % (36.0-46.0); Hemoglobin 12.5 g/dL (12.2-16.2); Lymphocytes # (auto) 1.9 10 ^3/uL (0.4-5.4); Mean Corpuscular Hemoglobin 32.7 pg (28.0-32.0); Mean Corpuscular Volume 96.1 fL (80.0-100.0); Monocytes # (auto) 0.3 10 ^3/uL (0-1.3); Monocytes % (auto) 3.9 % (0.0-12.0); Neutrophils # (auto) 5.1 10 ^3/uL (1.6-8.6); Neutrophils % (auto) 68.4 % (37.0-80.0); Nucleated Red Blood Cells % 0.1 %; Platelet Count (auto) 167 10^3/uL (140-450); Red Blood Cells 3.83 10^6/uL (4.0-5.20); Red Cell Distribution Width 13.8 % (11.8-14.3); White Blood Cell 7.5 10^3/uL (4.4-10.8)
[2020-06-15 10:02] LABS: Albumin 2.7 g/dL (3.4-5.0); Calcium 8.9 mg/dL (8.5-10.1)
[2020-06-15 10:07] LABS: BUN/Creatinine Ratio 15.5; Bilirubin, Total 0.4 mg/dL (0.2-1.0); Total Protein 6.3 g/dL (6.4-8.2)
[2020-06-15 10:18] LABS: INR 0.91 (0.9-1.15)
[2020-06-15] MEDS ORDERED: TETRACAINE 1% INJ 2 ML VIAL IJ ONE (11:59)
[2020-06-15] MEDS ORDERED: MORPHINE SULF(PF) 0.5MG/ML 10ML VIAL ONE (12:05)
[2020-06-15] MEDS ORDERED: ONDANSETRON HCL 4 MG/2 ML VIAL ONE (12:05)
[2020-06-15] MEDS ORDERED: MIDAZOLAM HCL 1MG/1ML-2 ML VIAL ONE (12:05)
[2020-06-15] MEDS ORDERED: SODIUM CHLORIDE LOCK 10 ML ONE (12:05)
[2020-06-15] MEDS ORDERED: fentaNYL CITRATE 100 MCG/2 ML VL ONE (12:05)
[2020-06-15] MEDS ORDERED: oxyTOCIN 10 UNIT/ML 10ML VIAL ONE (12:05)
[2020-06-15] MEDS ORDERED: ONDANSETRON HCL 4 MG/2 ML VIAL IV PRN (13:00)
[2020-06-15] MEDS ORDERED: LACT. RINGERS/OXYTOCIN 20UNITS 1,000 ML IV ONE (13:00)
[2020-06-15 13:03] LABS: Urine Bacteria NONE SEEN /hpf (None Seen); Urine Blood Negative /uL (Negative); Urine Mucus FEW (None Seen); Urine Specific Gravity 1.013 (1.001-1.035); Urine WBC <1 /hpf (0 - 5)
[2020-06-15] MEDS ORDERED: NALOXONE HCL 0.4 MG/ML VIAL IV PRN (13:30)
[2020-06-15] MEDS ORDERED: diphenhdrAMINE HCL 50 MG/1 ML VL IV PRN (13:30)
[2020-06-15] MEDS ORDERED: HYDROmorphone HCL 2 MG/ML VL IV PRN (13:30)
[2020-06-15] MEDS ORDERED: MORPHINE SULFATE 4 MG/ML SYR/VIAL IV PRN (13:30)
[2020-06-15] MEDS ORDERED: METOCLOPRAMIDE HCL 5MG/ml INJ 2ml VIAL IV PRN (13:30)
[2020-06-15 13:45] LABS: Amphetamine Screen, Urine NEGATIVE (NEGATIVE); Barbiturate Scree,Urine NEGATIVE (NEGATIVE); Benzodiazephine Screen, Urine NEGATIVE (NEGATIVE); Cannabinoid Screen, Urine NEGATIVE (NEGATIVE); Opiate Scree,Urine NEGATIVE (NEGATIVE); Phencyclidine Screen, Urine NEGATIVE (NEGATIVE)
[2020-06-15 13:47] LABS: Alcohol, Urine < 3.0 mg/dL (0-10); Cocaine Screen, Urine NEGATIVE (NEGATIVE)
--- NOTE | 2020-06-15 14:26 | NUR ---
Post Op for LDRP: Received patient from PACU via bed to room 7b. Patient A/A/Ox4, abdominal binder and bilateral SCD's are in place, IV fluids placed on pump and infusing per order, incisional site dressing clean/dry/intact and Calles Catheter to gravity draining clear yellow urine. Incentive Spirometer at bedside and instruction on proper use with return demonstration done by patient. Addendum: 06/15/20 at 1958 by Candida Lockhart RN Report received from Dejon Tavarez RN, assumed care of pt in stable condition.
--- NOTE | 2020-06-15 14:26 | NUR ---
Lower abdominal incision dressing clean, dry and intact. Addendum: 06/15/20 at 5 by Candida Lockhart RN Amended: Links added.
[2020-06-15] MEDS ORDERED: ACETAMINOPHEN IV 1000 MG/100ML (10MG/ML) IV ONE (17:00)
[2020-06-15] MEDS: ceFAZolin 1GM/50ML 50 ML IV SCH (19:56)
[2020-06-15 21:34] LABS: Basophils # (auto) 0 10 ^3/uL (0-0.2); Basophils % (auto) 0.1 % (0.0-2.0); Eosinophils # (auto) 0 10 ^3/uL (0-0.8); Eosinophils % (auto) 0.5 % (0.0-7.0); Hematocrit 33.7 % (36.0-46.0); Hemoglobin 11.4 g/dL (12.2-16.2); Lymphocytes # (auto) 1.2 10 ^3/uL (0.4-5.4); Lymphocytes % (auto) 13.3 % (10.0-50.0); Mean Corpuscular Hemoglobin 32.4 pg (28.0-32.0); Mean Corpuscular Hgb Conc. 33.8 g/dL (32.0-36.0); Mean Corpuscular Volume 96.1 fL (80.0-100.0); Monocytes # (auto) 0.3 10 ^3/uL (0-1.3); Monocytes % (auto) 3.2 % (0.0-12.0); Neutrophils # (auto) 7.7 10 ^3/uL (1.6-8.6); Neutrophils % (auto) 82.9 % (37.0-80.0); Platelet Count (auto) 140 10^3/uL (140-450); Red Blood Cells 3.51 10^6/uL (4.0-5.20); Red Cell Distribution Width 13.8 % (11.8-14.3); White Blood Cell 9.3 10^3/uL (4.4-10.8)
[2020-06-15] MEDS: MORPHINE SULFATE 4 MG/ML SYR/VIAL IV PRN (22:40)
[2020-06-16] VITALS (11 sets, daily range): BP systolic 108–143; BP diastolic 52–89
[2020-06-16] MEDS: MORPHINE SULFATE 4 MG/ML SYR/VIAL IV PRN (02:51)
[2020-06-16] MEDS: ceFAZolin 1GM/50ML 50 ML IV SCH ×2 (03:59→12:06)
[2020-06-16 05:08] LABS: RPR Non Reactive (Non Reactive)
--- NOTE | 2020-06-16 05:39 | NUR ---
Weaver catheter dc'd Order to discontinue weaver catheter. Weaver dc'd with clean technique following deflation of balloon. Patient tolerated well with no complaints of pain. Continue care.
--- NOTE | 2020-06-16 05:40 | NUR ---
Ambulation: Patient OOB with standby assistance by RN. Patient ambulated to chair with steady gait. Clean gown provided and bed linen changed. Patient ambulated back to bed with steady gait and no distress noted.
[2020-06-16 07:08] LABS: Basophils # (auto) 0 10 ^3/uL (0-0.2); Basophils % (auto) 0.1 % (0.0-2.0); Eosinophils # (auto) 0.1 10 ^3/uL (0-0.8); Eosinophils % (auto) 0.9 % (0.0-7.0); Hematocrit 34.7 % (36.0-46.0); Lymphocytes # (auto) 0.7 10 ^3/uL (0.4-5.4); Lymphocytes % (auto) 9.9 % (10.0-50.0); Mean Corpuscular Hemoglobin 33.4 pg (28.0-32.0); Mean Corpuscular Hgb Conc. 34.7 g/dL (32.0-36.0); Mean Corpuscular Volume 96.3 fL (80.0-100.0); Monocytes # (auto) 0.2 10 ^3/uL (0-1.3); Monocytes % (auto) 2.5 % (0.0-12.0); Neutrophils # (auto) 5.9 10 ^3/uL (1.6-8.6); Neutrophils % (auto) 86.6 % (37.0-80.0); Platelet Count (auto) 137 10^3/uL (140-450); Red Cell Distribution Width 13.9 % (11.8-14.3); White Blood Cell 6.8 10^3/uL (4.4-10.8)
[2020-06-16] MEDS ORDERED: BISACODYL 10 MG RECT SUPP PR PRN (09:45)
[2020-06-16] MEDS ORDERED: HYDROcodone-ACET 5/325MG TAB PO PRN (09:45)
[2020-06-16] MEDS: DOCUSATE SOD 100 MG CAP PO SCH ×2 (10:40→22:15)
[2020-06-16] MEDS: HYDROcodone-ACET 5/325MG TAB PO PRN ×3 (10:41→22:15)
[2020-06-16] MEDS: DOCUSATE CALCIUM 240 MG CAP PO SCH (10:41)
[2020-06-16] MEDS: SIMETHICONE 80 MG CHEWABLE TABLET PO SCH ×3 (12:06→22:17)
[2020-06-16] MEDS: IBUPROFEN 800 MG TAB PO PRN (15:50)
[2020-06-17] MEDS: IBUPROFEN 800 MG TAB PO PRN ×3 (02:34→18:39)
[2020-06-17 02:45] VITALS: BP 129/82
[2020-06-17] MEDS: SIMETHICONE 80 MG CHEWABLE TABLET PO SCH ×4 (05:32→22:08)
[2020-06-17] MEDS: HYDROcodone-ACET 5/325MG TAB PO PRN ×3 (05:32→21:13)
[2020-06-17 07:10] VITALS: BP 113/75
[2020-06-17] MEDS: DOCUSATE SOD 100 MG CAP PO SCH ×2 (10:32→22:08)
[2020-06-17] MEDS: DOCUSATE CALCIUM 240 MG CAP PO SCH (10:36)
[2020-06-17 10:50] VITALS: BP 120/60
[2020-06-17 15:30] VITALS: BP 133/69
[2020-06-17 19:00] VITALS: BP 142/83
[2020-06-17 22:30] VITALS: BP 125/67
[2020-06-18] MEDS: IBUPROFEN 800 MG TAB PO PRN (02:41)
[2020-06-18 02:55] VITALS: BP 127/64
[2020-06-18] MEDS: SIMETHICONE 80 MG CHEWABLE TABLET PO SCH (05:31)
[2020-06-18] MEDS: HYDROcodone-ACET 5/325MG TAB PO PRN (05:31)
[2020-06-18 07:10] VITALS: BP 138/92
--- NOTE | 2020-06-18 07:48 | NUR ---
Discharge: Discharge instructions given as ordered. Pt encouraged to follow up with [facility] as instructed. All questions and concerns addressed. Patient verbalized understanding. Medication reconciliation completed and copy given to patient. refused influenza. Patient encouraged to prepare to depart unit.Discharge: Patient taken to vehicle via ambulation with all personal belongings, accompanied by staff and family member. No distress noted at time of departure, no adverse changes in status since initial assessment.
== END 2020-06-18 07:48 | disposition home or self-care (01) | DRG 540 ==
LOC: LDRP 08:15
PROVIDERS: ADMIT Obstetrics & Gynecology; ATTEND Obstetrics & Gynecology
PROC: 10D00Z1 Extraction of Products of Conception, Low, Open Approach (ICD-10-PCS; principal; 2020-06-15 11:53)
DX: O34.219 Maternal care for unspecified type scar from previous cesarean delivery (principal); Z37.0 Single live birth; Z3A.39 39 weeks gestation of pregnancy
CPT/HCPCS: 36415; 59025; 80053; 80307; 81001; 84443; 85025; 85610; 85730; 86592; 86850; 86900; 86901; 93005; 94762; 96360; 96361; 96365; 96366; 96374; G0378; J0131; J0690; J2250; J2405; J2590